=== PATIENT | female | born 1955 | race Two or more races ===

== ENCOUNTER 2022-09-28 19:46 | Inpatient (IN) | payer MEDICARE ==
[~2022-09-28] VITALS: Ht 167.6 cm; Wt 71.7 kg
--- NOTE | 2022-09-28 19:54 | NUR ---
Dr Kiran at bedside MSE in progress
--- NOTE | 2022-09-28 20:16 | NUR ---
Patient is able to walk to the restroom with steady gait
[2022-09-28 20:23] LABS: HEMATOCRIT 43.1 % (31.2-41.9); MEAN CORPUSCULAR HEMOGLOBIN 30.6 uug (24.7-32.8); MEAN CORPUSCULAR VOLUME 93.6 fL (75.5-95.3); PLATELET COUNT (AUTO) 373 K/uL (179-408)
[2022-09-28 20:30] LABS: CARBON DIOXIDE 29 mmol/L (21-32); CHLORIDE 105 mmol/L (98-107); CREATININE 0.9 mg/dL (0.6-1.3); GLUCOSE 109 mg/dL (74-106); POTASSIUM 4.5 mmol/L (3.5-5.1); UREA NITROGEN, BLOOD 12 mg/dL (7-18)
[2022-09-28 20:35] LABS: ETHANOL < 3 MG/DL (0-0)
[2022-09-28 20:36] LABS: ALANINE AMINOTRANSFERASE 27 U/L (14-59); ALKALINE PHOSPHATASE 62 U/L (50-136); ASPARTATE AMINOTRANSFERASE 18 U/L (15-37); BILIRUBIN,DIRECT 0.1 mg/dL (0.0-0.2); BILIRUBIN,TOTAL 0.6 mg/dL (0.2-1.0); TOTAL PROTEIN, SERUM 7.1 g/dL (6.4-8.2)
--- NOTE | 2022-09-28 20:46 | NUR ---
patient has been medically cleared by Dr Kiran
--- NOTE | 2022-09-28 20:51 | NUR ---
report given to Augustus IWNSTON - MHU
[2022-09-28 21:15] VITALS: BP 120/80
--- NOTE | 2022-09-28 21:20 | NUR ---
Pt. admitted to MHU room 140B , under care of Dr. Rogers Belongs List completed Carina RN and Augustus RN aware of patient's arrival
--- NOTE | 2022-09-28 21:45 | NUR ---
Pt is uncooperative. No home medication were found in patient's records. No medical or psyh history were found at this time. patient did not give permission to contact boyfriend at this time. patient stated she has a daughter but she does not want her to know where she is. will continue to monitor.
--- NOTE | 2022-09-28 22:15 | NUR ---
ADMITTED EARLIER AT APPROX 2115 A 67 YEARS OLD FEMALE FORM [facility] ER TO [facility] MHU ON A 5150 FOR GD. PER HOLD PATIENT LIVES IN [facility] [place] WITH BOYFRIEND. SHE WAS BIB BOYFRIEND TO [place] INITIALLY THE SHE WAS TRANSFERRED TO [facility] ER D/T ONSET OF DELIRIUM, CONFUSION AND INAPPROPRIATE LAUGHING; UPON ADMISSION, PATIENT IS A/O X 3 CALM AND COOPERATIVE WITH ADMISSION PROCESS. FACE TO FACE ASSESSMENT WAS DONE, PATIENT WAS GIVEN HER ADVISEMENT WELL HIS BOOKLET FOR PATIENT'S RIGHTS WHEN ADMITTED TO A MENTAL HEALTH FACILITY. ALL HER BELONGING WERE INVENTORY AND SECURED IN A LOCKED CABINET. PATIENT WAS INFORMED OF HER ROOM, ROOM MATE AND UNIT RULES. SHE IS UNDER THE CARE OF DR SEO. WILL CONTINUE WITH Q15 MIN CHECKS.
[2022-09-28] MEDS ORDERED: MAGNESIUM HYDROXIDE 30 ML LIQUID UDC PO PRN (22:30)
[2022-09-28] MEDS ORDERED: TEMAZEPAM 7.5 MG CAPSULE PO PRN (22:30)
[2022-09-28] MEDS ORDERED: MAG HYDROX/AL HYDROX/SIMETH 30 ML LIQUID UDC PO PRN (22:30)
[2022-09-28] MEDS ORDERED: ACETAMINOPHEN 325 MG TABLET PO PRN (22:30)
[2022-09-28] MEDS ORDERED: BLOOD SUGAR DIAGNOSTIC 1 EACH STRIP VI ONE (22:30)
[2022-09-28 22:31] LABS: ACETAMINOPHEN < 2.0 ug/mL (10-30)
[2022-09-28] MEDS ORDERED: LORAZEPAM 2 MG/1 ML VIAL IM ONE (23:15)
[2022-09-28] MEDS ORDERED: OLANZAPINE 10 MG VIAL IM ONE (23:15)
--- NOTE | 2022-09-28 23:40 | NUR ---
CHEMICAL RESTRAIN: PATIENT BECAME ANXIOUS AND AGITATED. SHE WANTED TO LIVE THE FACILITY. SHE WAS GOING INTO OTHER PATIENTS ROOM. SHE BECAME VERBALLY AGGRESSIVE, PACING THE HALLWAY, SHE STOOD BY THE DOUBLE DOOR AND ATTEMPTED TO OPEN IT. PATIENT WAS REORIENTED TO REALITY, SHE WAS REASSURED OF HER SAFETY; HOWEVER, SHE BECAME PARANOID AND DELUSIONAL. SHE STATED, "IT DOES FEEL RIGHT HERE. THERE WAS SOMETHING IN THE WATER. I NEED ANOTHER SHOWER. YOU DID SOMETHING TO ME AND THAT IS WHY I AM HERE. PATIENT ALSO THREW ICE WATER AT THIS COMMISSARY OFFICER AND CONTINUE TO WALK TOWARD THE EXITS. DR HAMMER, KITCHEN WORKER COVERING FOR DR SEO WAS NOTIFIED OF PATIENT'S BEHAVIOR AND NEW ORDER OBTAINED TO ADMINISTER ATIVAN 1MG AND ZYPREXA 5MG IN STAT ONE TIME ORDER. ORDER WAS NOTED AND CARRIED OUT WITH THE AID OF SECURITY STAFF. WILL CONTINUE TO MONITOR CLOSELY.
--- NOTE | 2022-09-29 00:55 | NUR ---
PATIENT NOTED SLEEPING IN HER BED. CHEMICAL RESTRAIN WAS EFFECTIVE. WILL CONTINUE TO MONITOR.
[2022-09-29 07:46] VITALS: BP 130/58
[2022-09-29] MEDS: NICOTINE 14 MG/24HR PATCH TD SCH (08:31)
[2022-09-29] MEDS: DIVALPROEX 250 MG TABLET.DR PO SCH ×3 (11:00→16:26)
[2022-09-29] MEDS: risperiDONE 1 MG TABLET PO SCH ×2 (11:00→16:27)
[2022-09-29] MEDS: LORAZEPAM 0.5 MG TABLET PO PRN (11:31)
[2022-09-29] MEDS ORDERED: diphenhydrAMINE 50 MG/1 ML VIAL IM ONE (13:15)
[2022-09-29] MEDS ORDERED: HALOPERIDOL LACTATE 5 MG/1 ML VIAL IM ONE (13:15)
[2022-09-29] MEDS ORDERED: LORAZEPAM 2 MG/1 ML VIAL IM ONE (13:15)
--- NOTE | 2022-09-29 13:38 | NUR ---
Emergency IM Medication: Pt noted highly agitated, irritable, paranoid, delusional, and threatening staff high potential for violence to other peers, Pt remains confused and highly disorganized, labile at time. Pt is unpredictable at this time. Called and spoke to Dr. Rogers with a one time order for Ativan 1mg and Haldol 10 mg and Benadryl 25 mg IM, noted and carried out. Pt escorted to room with a hands off approach. Administered medication to right buttocks. No complications noted. Tolerated well.
--- NOTE | 2022-09-29 15:04 | NUR ---
patient up to Filomena-chair asleep in the chair will close to monitoring.
--- NOTE | 2022-09-29 15:16 | NUR ---
JARROD Initial Discharge Note: Per facesheet, pt currently resides at [address] , [place] [address] ([phone]). JARROD was unable to gather furhter information at this time. JARROD will work with pt, family and MD to ensure a safe and proper discharge plan.
--- NOTE | 2022-09-29 15:22 | NUR ---
Firearms Report: Plant Engineering Supervisor completed and submitted a [employer] firearms report for 5150 grave disability certifications. A copy of report has been placed in patient chart.
--- NOTE | 2022-09-29 15:25 | NUR ---
SW Family Contact: No family contact information available at this time.
[2022-09-29 16:09] VITALS: BP 108/58
--- NOTE | 2022-09-30 06:25 | NUR ---
GPS NOTES: Patient slept mostly during shift, total of 10.45. Went to bathroom x1 then went back to sleep. No respiratory distress noted. Frequent monitoring observed. Safety strategies in place.
[2022-09-30 08:30] VITALS: BP 103/55
[2022-09-30] MEDS: NICOTINE 14 MG/24HR PATCH TD SCH (08:48)
[2022-09-30] MEDS: risperiDONE 1 MG TABLET PO SCH ×5 (08:48→16:51)
[2022-09-30] MEDS: DIVALPROEX 250 MG TABLET.DR PO SCH ×6 (08:48→16:47)
--- NOTE | 2022-09-30 14:47 | NUR ---
Patient is labile, anxious at times, participating in group activities, compliant with medications with lots of prompts. A/O X 2 to person, place. Requires minimal assistance with ADL. Patient is encourage to verbalize concerns. Fall and safety precautions implemented.
--- NOTE | 2022-09-30 15:08 | NUR ---
Patient is alert and oriented 2. Noted to be anxious at times, able to make the need known. compliant with medications. Needs minimum of assist for ADLs. Will keep monitoring the resident.
[2022-09-30 16:41] VITALS: BP 122/80
[2022-09-30 20:15] VITALS: BP 156/86
--- NOTE | 2022-10-01 04:13 | NUR ---
GPS NOTES: Patient received in the activity area interacting w/ other peers, she is calm and able to make needs known. She stay up during shift, stay mostly in the day area. Offered her sleeping aid but she refused. Educate her for the importance of sleep, however she starts to be defensive and saying "I'm OK,I'm watching a good show". She is making simple demands, w/c are all attended to. She is observed closely for any behavioral escalation.
[2022-10-01 07:30] VITALS: BP 160/89
[2022-10-01] MEDS: risperiDONE 1 MG TABLET PO SCH ×2 (08:27→08:32)
[2022-10-01] MEDS: NICOTINE 14 MG/24HR PATCH TD SCH (08:27)
[2022-10-01] MEDS: DIVALPROEX 250 MG TABLET.DR PO SCH ×2 (08:27→08:32)
[2022-10-01] MEDS: BENZTROPINE MESYLATE 1 MG TABLET PO SCH ×2 (11:43→17:04)
--- NOTE | 2022-10-01 15:01 | NUR ---
Patient is sociable, anxious at times, argumentative, intrusive about other patient's care. Patient is compliant with medications with lots of prompt. Patient requires minimal assistance with ADL. A/O X 2 to person, place. Patient is encourage to verbalize concerns. Fall and safety precautions implemented.
[2022-10-01] MEDS ORDERED: risperiDONE 1 MG TABLET PO SCH (17:00)
[2022-10-01] MEDS: risperiDONE 2 MG TABLET PO SCH (17:04)
[2022-10-01 17:18] VITALS: BP 162/108
[2022-10-01] MEDS: DIVALPROEX 500 MG TABLET.DR PO SCH (20:21)
--- NOTE | 2022-10-01 20:54 | NUR ---
GPS: Pt.is easily irritable when approached. Paranoid and delusional. Argues with staff when being re-directed. Refused bedtime med. despite explanation of risks vs.benefits x3. Tried to barricade herself inside her room using tables and chair. Discouraged from doing so. Unit rules explained to her once again. Will continue to monitor.
--- NOTE | 2022-10-02 01:26 | NUR ---
GPS: Remains awake at this time just sitting up on a chair inside her room. Refused sleeping pill when offered by staff despite several attempts. Quiet and non-disruptive. Will continue to monitor.
[2022-10-02 07:30] VITALS: BP 158/110
[2022-10-02] MEDS: risperiDONE 2 MG TABLET PO SCH ×2 (08:58→17:14)
[2022-10-02] MEDS: NICOTINE 14 MG/24HR PATCH TD SCH (08:58)
[2022-10-02] MEDS: BENZTROPINE MESYLATE 1 MG TABLET PO SCH ×2 (08:58→17:14)
[2022-10-02] MEDS: DIVALPROEX 500 MG TABLET.DR PO SCH ×2 (10:17→20:19)
[2022-10-02] MEDS: AMLODIPINE 2.5 MG TABLET PO SCH (12:25)
[2022-10-02 16:20] VITALS: BP 160/82
[2022-10-02] MEDS ORDERED: ESTR0.5T PV (16:21)
--- NOTE | 2022-10-02 16:31 | NUR ---
received patient in her room pleasant up on approach , compliant with all medication ,denies any pain or discomfort at all time. refused to attend in group activity , no agitation or aggressive behavior noted.
[2022-10-02 20:03] VITALS: BP 124/82
[2022-10-03 07:30] VITALS: BP 137/83
[2022-10-03] MEDS: NICOTINE 14 MG/24HR PATCH TD SCH (09:28)
[2022-10-03] MEDS: BENZTROPINE MESYLATE 1 MG TABLET PO SCH ×2 (09:28→16:59)
[2022-10-03] MEDS: DIVALPROEX 500 MG TABLET.DR PO SCH ×2 (09:28→20:21)
[2022-10-03] MEDS: risperiDONE 2 MG TABLET PO SCH ×2 (09:29→20:21)
[2022-10-03] MEDS: AMLODIPINE 2.5 MG TABLET PO SCH (09:29)
--- NOTE | 2022-10-03 14:55 | NUR ---
Patient is cooperative with nursing care, compliant with medications, confused at times. Patient states "I'll be a good girl now, and will take my meds". Patient is sociable and pleasant. Patient is encourage to verbalize concerns. Fall and safety precautions implemented.
[2022-10-03 16:59] VITALS: BP 130/81
[2022-10-03 20:17] VITALS: BP 100/55
[2022-10-03] MEDS: [UNRECOGNIZED DRUG - OTHER] VG SCH (20:21)
[2022-10-03] MEDS: ESTRADIOL 0.5 MG VG SCH (20:21)
--- NOTE | 2022-10-04 05:08 | NUR ---
GPS NOTES: Patient A&0x3, she is able to make needs known. She is pleasant when approached, she is med compliant. She can CFS. no behavioral issues encountered during shift. She slept 5.45 during shift. Safety and fall precautions implemented.
[2022-10-04 07:30] VITALS: BP 130/78
[2022-10-04] MEDS: NICOTINE 14 MG/24HR PATCH TD SCH (08:49)
[2022-10-04] MEDS: DIVALPROEX 500 MG TABLET.DR PO SCH ×2 (08:49→20:07)
[2022-10-04] MEDS: AMLODIPINE 2.5 MG TABLET PO SCH (08:49)
[2022-10-04] MEDS: risperiDONE 2 MG TABLET PO SCH ×2 (08:49→20:07)
[2022-10-04] MEDS: BENZTROPINE MESYLATE 1 MG TABLET PO SCH ×2 (08:49→17:06)
--- NOTE | 2022-10-04 10:23 | NUR ---
Pt received sitting on chair in room resting comfortably. Denies pain or discomfort at this time. Pt has poor insight and paranoid. Does not believe she should be hospitalized. Believes it is a ploy from her daughter to get her property. Also noted delusional, believes the staff is raping her every day. Reoriented to reality.
[2022-10-04 16:18] VITALS: BP 154/64
[2022-10-04] MEDS: ESTRADIOL 0.5 MG VG SCH (20:07)
[2022-10-04] MEDS: [UNRECOGNIZED DRUG - OTHER] VG SCH (20:07)
[2022-10-04 20:12] VITALS: BP 123/73
--- NOTE | 2022-10-04 21:07 | NUR ---
GPS: Remains paranoid and delusional. Re-directed prn. Med.compliant. Re-assured prn. Safe environment provided.
[2022-10-05 07:40] VITALS: BP 116/68
[2022-10-05] MEDS: DIVALPROEX 500 MG TABLET.DR PO SCH ×2 (08:24→20:40)
[2022-10-05] MEDS: BENZTROPINE MESYLATE 1 MG TABLET PO SCH ×2 (08:24→16:58)
[2022-10-05] MEDS: NICOTINE 14 MG/24HR PATCH TD SCH (08:24)
[2022-10-05] MEDS: AMLODIPINE 2.5 MG TABLET PO SCH (08:24)
[2022-10-05] MEDS: risperiDONE 2 MG TABLET PO SCH ×2 (08:25→20:41)
[2022-10-05 16:05] VITALS: BP 129/65
--- NOTE | 2022-10-05 17:33 | NUR ---
patient in her room pleasant up on approach , compliant with all medication ,denies any pain or discomfort at all time. refused to attend in group activity , no agitation or aggressive behavior noted.visited by boyfriend at bedside.
[2022-10-05 19:43] VITALS: BP 145/86
[2022-10-05] MEDS: [UNRECOGNIZED DRUG - OTHER] VG SCH (20:42)
[2022-10-05] MEDS: ESTRADIOL 0.5 MG VG SCH (20:42)
[2022-10-06 07:44] VITALS: BP 106/66
[2022-10-06 07:45] VITALS: BP 133/82
[2022-10-06] MEDS: BENZTROPINE MESYLATE 1 MG TABLET PO SCH ×2 (08:31→16:34)
[2022-10-06] MEDS: AMLODIPINE 2.5 MG TABLET PO SCH (08:31)
[2022-10-06] MEDS: DIVALPROEX 500 MG TABLET.DR PO SCH ×2 (08:31→21:02)
[2022-10-06] MEDS: NICOTINE 14 MG/24HR PATCH TD SCH (08:31)
[2022-10-06] MEDS: risperiDONE 2 MG TABLET PO SCH ×2 (08:32→21:03)
--- NOTE | 2022-10-06 10:42 | NUR ---
JARROD Family Contact: JARROD contacted pt's, boyfriend, Hoahaoism ([phone]) to discuss discharge plan. Hoahaoism confirmed that pt is welcome back home upon discharge. Hoahaoism's questions and concerns were addressed. This SW stated she will contact Hoahaoism with a discharge date prior to discharge. Hoahaoism is aware and agreeable.
--- NOTE | 2022-10-06 12:47 | NUR ---
14 days PC hearing done ,held for Gravely Disabled only.
[2022-10-06 15:37] VITALS: BP_SYST 133; BP_DIAS 64; BP_DIAS 77
[2022-10-06 19:56] VITALS: BP 137/77
[2022-10-06] MEDS: [UNRECOGNIZED DRUG - OTHER] VG SCH (21:03)
[2022-10-06] MEDS: ESTRADIOL 0.5 MG VG SCH (21:03)
--- NOTE | 2022-10-06 21:28 | NUR ---
Patient is understands and is compliant with POC. She takes her medications willingly, and understands their importance. She is doing much better than when she first arrived onto the unit.
[2022-10-07 07:30] VITALS: BP 127/82
[2022-10-07] MEDS: NICOTINE 14 MG/24HR PATCH TD SCH (08:20)
[2022-10-07] MEDS: risperiDONE 2 MG TABLET PO SCH ×2 (08:21→20:10)
[2022-10-07] MEDS: BENZTROPINE MESYLATE 1 MG TABLET PO SCH ×2 (08:21→17:21)
[2022-10-07] MEDS: AMLODIPINE 2.5 MG TABLET PO SCH (08:21)
[2022-10-07] MEDS: DIVALPROEX 500 MG TABLET.DR PO SCH ×2 (08:22→20:10)
--- NOTE | 2022-10-07 16:22 | NUR ---
Patient is sociable, pleasant, cooperative with nursing care, and compliant with medications. Patient is forgetful at times. Requires minimal assistance with ADL. Pt. is encourage to verbalize concerns. Fall and safety precautions implemented.
[2022-10-07 16:56] VITALS: BP 138/71
[2022-10-07] MEDS: LORAZEPAM 0.5 MG TABLET PO PRN (18:02)
[2022-10-07] MEDS: ESTRADIOL 0.5 MG VG SCH (20:11)
[2022-10-07] MEDS: [UNRECOGNIZED DRUG - OTHER] VG SCH (20:11)
--- NOTE | 2022-10-07 21:01 | NUR ---
GPS: Pt.remains cooperative and compliant with her plan of care so far. Less delusional. Re-directed and re-assured prn. Safety emphasized.
[2022-10-07 21:02] VITALS: BP 114/61
[2022-10-08 07:30] VITALS: BP 104/74
[2022-10-08] MEDS: NICOTINE 14 MG/24HR PATCH TD SCH ×2 (08:28→08:40)
[2022-10-08] MEDS: AMLODIPINE 2.5 MG TABLET PO SCH (08:29)
[2022-10-08] MEDS: risperiDONE 2 MG TABLET PO SCH ×2 (08:29→20:19)
[2022-10-08] MEDS: DIVALPROEX 500 MG TABLET.DR PO SCH ×2 (08:29→20:19)
[2022-10-08] MEDS: BENZTROPINE MESYLATE 1 MG TABLET PO SCH ×2 (08:29→16:51)
--- NOTE | 2022-10-08 15:52 | NUR ---
Patient is calm, cooperative, compliant with medications, participates in group activities, sociable. A/O X 4 to person, place. Emotional support provided. Fall and safety precautions implemented.
[2022-10-08 16:24] VITALS: BP 147/66
[2022-10-08 20:11] VITALS: BP 132/80
[2022-10-08] MEDS: ESTRADIOL 0.5 MG VG SCH (20:19)
[2022-10-08] MEDS: [UNRECOGNIZED DRUG - OTHER] VG SCH (20:19)
[2022-10-09 07:18] LABS: HEMATOCRIT 39.5 % (31.2-41.9); MEAN CORPUSCULAR HEMOGLOBIN 31.2 uug (24.7-32.8); MEAN CORPUSCULAR VOLUME 92.7 fL (75.5-95.3); PLATELET COUNT (AUTO) 298 K/uL (179-408)
[2022-10-09 07:30] VITALS: BP 128/72
[2022-10-09 07:39] LABS: BILIRUBIN,TOTAL 0.3 mg/dL (0.2-1.0); CREATININE 0.9 mg/dL (0.6-1.3); TOTAL PROTEIN, SERUM 6.8 g/dL (6.4-8.2)
[2022-10-09] MEDS: DIVALPROEX 500 MG TABLET.DR PO SCH (08:49)
[2022-10-09 08:50] VITALS: BP 128/72
[2022-10-09] MEDS: risperiDONE 2 MG TABLET PO SCH (08:50)
[2022-10-09] MEDS: AMLODIPINE 2.5 MG TABLET PO SCH (08:50)
[2022-10-09] MEDS: BENZTROPINE MESYLATE 1 MG TABLET PO SCH (08:50)
[2022-10-09] MEDS: NICOTINE 14 MG/24HR PATCH TD SCH (08:51)
--- NOTE | 2022-10-09 09:24 | NUR ---
JARROD Discharge Note: Pt will be discharged to home at [address] [place] [address] via pts boyfriends, Nereyda ([phone]) private vehicle transportation at 11AM. JARROD spoke with Nolan who states he is ready to accept the patient today. Pt is aware and agreeable with discharge plan. Pt is alert and oriented x4, is unable to plan for self-care at this time. However, pt is willing to accept care at home under her boyfreinds care. Pt denies any suicidal or homicidal ideation. Pt will follow-up at the facility with [facility] via teletherapy located at [address] [place] [phone] ([phone]) on October 16 at 9AM confirmed by Arnav. Pt will have a phone consultation and be assigned a psychiatrist and Scouring Train Operator. Pt presents with calm mood and congruent affect. PHARMACY: [facility] [address] [place] [phone] ([phone]).
--- NOTE | 2022-10-09 11:14 | NUR ---
Received order to discharge this patient to [place] [address] [place] [address] via patient's boyfriend Sikhism ([phone]) private vehicle transportation at 11AM. Patient was agreeable with discharge plans, and signed all discharge documentation. All valuables, belongings, and medications were returned to patient. Patient denies SI/HI AH/VH, SOB, pain or any discomfort. Patient left unit at 11:10AM. Emotional support provided. Fall and safety precautions implemented.
== END 2022-10-09 11:10 | disposition home or self-care (01) | DRG 885 ==
LOC: ER 20:03 → GPS 20:58
PROVIDERS: ADMIT Psychiatry & Neurology Psychosomatic Medicine
DX: F31.9 Bipolar disorder, unspecified (principal); F23 Brief psychotic disorder; F39 Unspecified mood [affective] disorder; Z20.822 Contact with and (suspected) exposure to COVID-19; F12.90 Cannabis use, unspecified, uncomplicated; F17.210 Nicotine dependence, cigarettes, uncomplicated
CPT/HCPCS: 36415; 80164; 85025; A4663; G0480; J1200; J1630; J2060; J2358; J3490